=== PATIENT | female | born 1995 | race Caucasian/White ===

== ENCOUNTER 2023-06-11 03:48 | Inpatient (IN) | payer BC ==
[2023-06-11 04:05] VITALS: BMI 30.4
[2023-06-11] MEDS ORDERED: hydrALAZINE 20 MG/ML VIAL SLOW IVP PRN ×3 (05:47→21:47)
[2023-06-11] MEDS ORDERED: HYDROcodone/Acetaminophen 5/325 mg Tablet PO PRN ×4 (08:38→21:47)
[2023-06-11] MEDS ORDERED: Ibuprofen 800 MG TAB PO PRN (08:38)
[2023-06-11] MEDS ORDERED: Ondansetron PF 4 MG/2 ML Vial IVP PRN ×2 (08:38→15:26)
[2023-06-11] MEDS ORDERED: Promethazine HCl 25 MG/ML VIAL IM PRN ×2 (08:38→15:26)
[2023-06-11] MEDS ORDERED: Lactated Ringer's 1,000 ML IV PRN (08:38)
[2023-06-11] MEDS ORDERED: Lidocaine 1% (PF) 30 ML VIAL SC PRN (08:38)
[2023-06-11] MEDS ORDERED: Oxytocin 30 units/NS 500 ML 500 ML IV SCH ×3 (08:45→21:47)
[2023-06-11 09:32] LABS: Hematocrit 35.3 % (34.9-44.5); Mean Corpuscular Volume 82.5 fl (81.6-98.3); Mean Platelet Volume 12.4 fl (7.4-10.4); Platelet Count 188 10x3/uL (150-450); RBC Distribution Width 12.5 % (11.5-14.5); Red Blood Cell (RBC) Count 4.28 10x6/uL (3.90-5.03)
[2023-06-11 09:59] LABS: Syphilis Antibody Nonreactive (Nonreactive); Syphilis Antibody Index 0.02 S/CO (<1.00 Non-Reactive)
[2023-06-11 10:01] LABS: HBSAg Index 0.15 S/CO (0-0.99); Hep B Surf Ag - L&D Non-Reactive S/CO (NonReactive)
[2023-06-11] MEDS ORDERED: fentaNYL/Ropivacaine Epidural 100 ML ONE (14:50)
[2023-06-11] MEDS ORDERED: Acetaminophen 325 MG TAB PO PRN (15:26)
[2023-06-11] MEDS ORDERED: diphenhydrAMINE 50 MG/ML VIAL IVP PRN (15:26)
[2023-06-11] MEDS ORDERED: ePHEDrine Sulfate 50 MG/10 ML VIAL SLOW IVP PRN (15:26)
[2023-06-11] MEDS ORDERED: Moisturizing Cream (Eucerin) 113 GM JAR TOP PRN (15:26)
[2023-06-11] MEDS ORDERED: Naloxone HCl 0.4 mg/ml Vial IVP PRN ×2 (15:26)
[2023-06-11] MEDS ORDERED: Lactated Ringer's 500 ML IV PRN (15:26)
[2023-06-11] MEDS ORDERED: Communication Order-Pharmacy FS SCH (15:30)
[2023-06-11] MEDS ORDERED: fentaNYL 2 mcg/Ropivacaine 0.2% Epidural 100 ML CADD EPIDURAL SCH (15:30)
[2023-06-11] MEDS ORDERED: Benzocaine-Menthol 82.5 ML CAN TOP PRN (21:47)
[2023-06-11] MEDS ORDERED: Boostrix 0.5 ML (Tdap) VIAL (>/=7 yrs of age) IM ONE (21:47)
[2023-06-11] MEDS ORDERED: Milk Of Magnesia 30 ML UDCUP PO PRN (21:47)
[2023-06-11] MEDS ORDERED: Bisacodyl 10 MG SUPP PR PRN (21:47)
[2023-06-11] MEDS: Ibuprofen 800 MG TAB PO SCH (22:50)
[2023-06-12] MEDS: Ibuprofen 800 MG TAB PO SCH ×3 (05:24→21:21)
[2023-06-12] MEDS: Ferrous Sulfate 325 MG TAB PO SCH ×2 (07:28→17:07)
[2023-06-12] MEDS: Docusate 100 MG CAP PO SCH ×2 (08:16→21:21)
[2023-06-12] MEDS ORDERED: Prenatal Vitamin 1 TAB PO SCH (09:00)
[2023-06-12 20:19] VITALS: BP 141/75; TEMP 97.9
== END 2023-06-12 23:30 | disposition home or self-care (01) | DRG 807 ==
LOC: CSHLD/OP 03:48 → CSHLD 08:44 → CSHPP 21:35
PROVIDERS: ADMIT Obstetrics & Gynecology; ATTEND Obstetrics & Gynecology
PROC: 10E0XZZ Delivery of Products of Conception, External Approach (ICD-10-PCS; principal; 2023-06-11)
PROC: 10907ZC Drainage of Amniotic Fluid, Therapeutic from Products of Conception, Via Natural or Artificial Opening (ICD-10-PCS; 2023-06-11)
DX: O80 Encounter for full-term uncomplicated delivery (principal); Z37.0 Single live birth; Z3A.39 39 weeks gestation of pregnancy
CPT/HCPCS: 36415; 51702; 85027; 86780; 86850; 86900; 86901; 87340; 99285; J2405